=== PATIENT | male | born 1945 | race Caucasian/White ===

== ENCOUNTER → 2016-06-02 | Outpatient (CLI) | payer MEDICARE, BC ==
[~2016-06-02] MED LIST: PERC5TAB12 PO; TAMS5CAP PO; ZOFR4TAB PO; ZOFR4TAB3 SL
--- NOTE | 2016-06-04 09:18 | RSPPFT ---
DATE OF PROCEDURE: 06/02/16 COMMENTS: VOLUMES DYNAMIC: FVC and FEV1 low normal. STATIC: TLC, VTG and RV normal. FLOWS: FEV1% mildly reduced; FEF 25-75 moderately reduced. DIFFUSION: Normal. FLOW VOLUME LOOP: Terminal airflow obstruction. IMPRESSION: Mild obstructive ventilatory defect with normal diffusion and only a very mild increase in airways resistance. There is minimal improvement post-bronchodilator.
== END ==
LOC: HRSP 09:47
PROVIDERS: ATTEND Family Medicine
DX: R05 Cough (principal)
CPT/HCPCS: 94060; 94726; 94729

== ENCOUNTER 2016-06-29 07:45 | Emergency (ER) | payer MEDICARE, BC ==
[~2016-06-29] VITALS: Ht 167.6 cm; Wt 90.7 kg
[~2016-06-29 07:45] MED LIST changes: -PERC5TAB12 PO; -TAMS5CAP PO; -ZOFR4TAB PO
[2016-06-29 07:49] VITALS: BP 164/85; PULSE 81; RESP 16; TEMP 97.7; O2SAT 98
--- NOTE | 2016-06-29 08:22 | PD ---
HPI Chief Complaint: Flank/Kidney Pain Time Seen by Provider: 08:09 Travel History International Travel<30 days: No Contact w/Intl Traveler<30days: No Traveled to known affect area: No History of Present Illness HPI This patient complains of right flank pain. Started at 9 PM last night abruptly. It radiates to his right groin. He's had multiple kidney stones before and this feels exactly the same. He is very confident that he is having another kidney stone. No fever or diarrhea or abdominal pain. Duration is 11 hours. No alleviating factors. PFSH Past Medical History Arthritis: No Asthma: No Autoimmune Disease: No Blood Disorders: No Anxiety: No Depression: No Heart Rhythm Problems: No Cancer: No Cardiovascular Problems: No High Cholesterol: No Chemotherapy: No Chest Pain: No Congestive Heart Failure: No COPD: No Cerebrovascular Accident: No Diabetes: No Endocrine: No GERD: No Glaucoma: No Genitourinary: Yes Headaches: No Hepatitis: No Hiatal Hernia: Yes Hypertension: No Immune Disorder: No Kidney Stones: Yes Musculoskeletal: No Neurologic: No Psychiatric: No Reproductive: No Respiratory: No Migraines: No Myocardial Infarction: No Radiation Therapy: No Renal Failure: No Seizures: No Sickle Cell Disease: No Sleep Apnea: No Thyroid Disease: No Ulcer: No Past Surgical History Abdominal Surgery: Yes (Cholecystectomy) AICD: No Appendectomy: No Arteriovenous Shunt: No Cardiac Surgery: No Cholecystectomy: Yes Ear Surgery: No Endocrine Surgery: No Eye Surgery: No Genitourinary Surgery: No Gynecologic Surgery: No Insulin Pump: No Joint Replacement: No Oral Surgery: No Pacemaker: No Thoracic Surgery: No Social History Alcohol Use: No Tobacco Use: No Substance Use: No Allergies-Medications (Allergen,Severity, Reaction): Coded Allergies: No Known Allergies (Verified , 06/29/16) Reported Meds & Prescriptions Reported Meds & Active Scripts Active No Active Prescriptions or Reported Medications Review of Systems General / Constitutional: No: Fever Eyes: No: Visual changes HENT: No: Headaches Cardiovascular: No: Chest Pain or Discomfort Respiratory: No: Shortness of Breath Gastrointestinal: Positive: Nausea, No: Abdominal Pain Genitourinary: Positive: Flank Pain, No: Dysuria Musculoskeletal: No: Pain Skin: No Rash Neurologic: No: Weakness Psychiatric: No: Depression Endocrine: No: Polydipsia Hematologic/Lymphatic: No: Easy Bruising Physical Exam Narrative GENERAL: Well-nourished, well-developed patient with right flank pain. SKIN: Warm and dry. HEAD: Atraumatic. Normocephalic. EYES: Pupils equal and round. No scleral icterus. No injection or drainage. ENT: No nasal bleeding or discharge. Mucous membranes pink and moist. NECK: Trachea midline. No JVD. CARDIOVASCULAR: Regular rate and rhythm. No murmur appreciated. RESPIRATORY: No accessory muscle use. Clear to auscultation. Breath sounds equal bilaterally. GASTROINTESTINAL: Abdomen soft, non-tender, nondistended. Hepatic and splenic margins not palpable. MUSCULOSKELETAL: No obvious deformities. No clubbing. No cyanosis. No edema. No midline tenderness of the back NEUROLOGICAL: Awake and alert. No obvious cranial nerve deficits. Motor grossly within normal limits. Normal speech. PSYCHIATRIC: Appropriate mood and affect; insight and judgment normal. Data Data Last Documented VS Vital Signs Date Time Temp Pulse Resp B/P Pulse Ox O2 Delivery O2 Flow Rate FiO2 06/29/16 07:49 97.7 81 16 164/85 98 Orders Urinalysis - C+S If Indicated (06/29/16 08:18) Morphine Inj (Morphine Inj) (06/29/16 08:30) Ondansetron Inj (Zofran Inj) (06/29/16 08:30) Ketorolac Inj (Toradol Inj) (06/29/16 08:30) MDM Medical Decision Making Medical Screen Exam Complete: Yes Emergency Medical Condition: Yes Medical Record Reviewed: Yes Differential Diagnosis Kidney stone, lumbar strain, sciatica Narrative Course I have reviewed the patient's electronic medical record. Patient was here 2007 for kidney stones and was seen here last month for respiratory infection We discussed options at length. Urinalysis shows hematuria without infection I gave him injection of morphine and Zofran and Toradol for symptom relief He is stable for outpatient urology follow-up Presentation is very consistent with acute flank pain from kidney stone which she's had multiple times before. We discussed indications for emergent CT scanning. Unlikely to change director since he looks clinically well. Medicine for pain and nausea and a week of Flomax written On recheck he feels much better Diagnosis Primary Impression: Acute right flank pain Additional Impression: Hematuria Additional Instructions: The patient was advised to follow up with urologist The patient was warned about potential sedation for the medications they will receive on prescription. Med/Other Pt SpecificInfo: Prescription(s) given Scripts Ondansetron (Zofran)4 Mg Tab4 Mg PO Q6HR PRN (NAUSEA OR VOMITING) #15 TAB Ref 0 Prov:Luis Walters MD 06/29/16 Oxycodone-Acetaminophen (Percocet)5-325 mg Tab1 Tab PO Q6H PRN (PAIN) #25 TAB Ref 0 Prov:Luis Walters MD 06/29/16 Tamsulosin (Flomax)0.4 Mg Cap0.4 Mg PO HS #7 CAP Ref 0 Prov:Luis Walters MD 06/29/16 Disposition: 01 DISCHARGE HOME Condition: Stable Luis Walters MD Jun 29, 2016 08:22
[2016-06-29] MEDS ORDERED: KETOROLAC TROMETHAMINE 60 MG/2 ML (IM) VIAL IM ONE (08:30)
[2016-06-29] MEDS ORDERED: MORPHINE SULFATE 4 MG/ML INJ IM ONE (08:30)
[2016-06-29] MEDS ORDERED: ONDANSETRON HCL 4 MG/2 ML VIAL IM ONE (08:30)
[2016-06-29 08:31] LABS: BLOOD, URINE SMALL (NEG); GLUCOSE,URINE NEG (NEG); KETONE, URINE NEG (NEG); NITRITE,URINE NEG (NEG)
[2016-06-29 08:32] LABS: METHOD OF COLLECTION CLEAN CATCH; URINE COLOR YELLOW (YELLW/STRAW)
[2016-06-29 08:35] LABS: CULTURE IF INDICATED CULT NOT INDICATED; SQUAMOUS EPITHELIAL CELL URINE 0-5 /hpf (0-5)
[2016-06-29 08:36] LABS: COMMENT (UR) CULT NOT INDICATED; COMMENT2 (UR) MUCOUS PRESENT
[2016-06-29] MEDS ORDERED: PERC5TAB12 PO (08:57)
[2016-06-29] MEDS ORDERED: ZOFR4TAB PO (08:57)
[2016-06-29] MEDS ORDERED: TAMS5CAP PO (08:57)
[2016-06-29 09:17] VITALS: BP 135/81
== END 2016-06-29 09:18 | disposition home or self-care (01) ==
LOC: PHED 07:45
DX: R10.9 Unspecified abdominal pain (principal); R31.9 Hematuria, unspecified
CPT/HCPCS: 81001; 96372; 99284; J1885; J2270; J2405